=== PATIENT | female | born 1945 | race Caucasian/White ===

== ENCOUNTER → 2018-08-22 12:18 | Outpatient (CLI) | payer MEDICARE, SELFPAY ==
--- NOTE | 2018-08-22 12:37 | MRI_ITS ---
STUDY: MRI BRAIN WITH AND WITHOUT CONTRAST REASON FOR EXAM: Female, 73 years old. Left facial weakness and paresthesias TECHNIQUE: Standardized multiplanar fat and water weighted pulse sequences were obtained. 10 ml of Gadavist contrast material was administered intravenously for the contrast portion of the examination. COMPARISON: None. FINDINGS: Mild atrophy and periventricular white matter ischemic changes without mass effect or restricted diffusion. There is a large arachnoid cyst high in the right frontal region Normal bilateral basal ganglia. Normal thalami. There is no extra-axial fluid accumulation. Normal flow voids within the major intracranial circulation suggesting patency by spin echo criteria. Normal venous enhancement. There appears to be very subtle enhancement of the left geniculate ganglion and proximal descending portion of the left facial nerve which appears to be normal size of uncertain clinical significance but may be consistent with neuritis. Clinical correlation recommended.. Partial empty sella deformity. Normal, infundibular stalk, optic chiasm and hypothalamus. Normal tectal plate and pineal gland. Normal midbrain, miquel and medulla. Normal cerebellum. Normal basal cisterns. Normal bilateral temporal bones. Normal bilateral internal auditory canals. Postsurgical changes of the orbits.. Mild mucosal thickening of the ethmoid air cells. Normal calvarium and skull base. Normal visualized soft tissue structures. Normal visualized upper cervical spine. MRI/Brain W/WO Contrast IMPRESSION: Mild atrophy and periventricular white matter ischemic changes without evidence for acute infarct. Mild enhancement of the left geniculate ganglion and proximal descending portion of the facial nerve of uncertain clinical significance but may be consistent with neuritis. Clinical correlation recommended Electronically Signed: Bruce Fry MD at 15:51 EST , Service support ,
== END ==
PROVIDERS: Family Provider Internal Medicine; PCP Internal Medicine
DX: R20.9 Unspecified disturbances of skin sensation (principal)
CPT/HCPCS: 70553; A9585

== ENCOUNTER 2018-09-25 15:30 | Emergency (ER) | payer MEDICARE, SELFPAY ==
[2018-09-25 15:32] VITALS: BP 162/91; PULSE 96; RESP 16; TEMP 36.9; O2SAT 92; BMI 35.6
--- NOTE | 2018-09-25 15:44 | ED.DCSUM_ITS ---
- ER Visit Summary Date of Service: 09/25/18 Chief Complaint: Patient presents from an urgent care, apparently she has had a 3-day history of cough congestion and some difficulty breathing. She has had intermittent fevers. No current fever. She denies any chest pain. She is able to ambulate well and is able to speak in full sentences. Physical Examination: Not appear in acute distress. Moist mucous membranes, there is upper airway congestion, rhinorrhea, TM erythema bilaterally. No C-spine tenderness supple neck. Regular rate and rhythm without any obvious murmurs Clear lungs bilaterally speaking in full sentences without any obvious respiratory distress. No wheezing heard by me Abdomen soft and nontender no guarding or rebound Moves all extremities without any difficulty or pain. Skin does not show any obvious rashes or lesions, no trauma. Alert oriented ?3 with no gross focal deficit Course and Treatment: Patient has an unremarkable x-ray. I reexamined her her lungs sound clear she is actively coughing, she likely has bronchitis. She a ppears well he does not appear toxic she is afebrile with a normal heart rate and saturating 92-93% after ambulating. I believe she is stable for discharge Disposition: Discharge stable condition Impression: Acute bronchitis This note was generated with [employer] dictation software. It may contain incorrect words, spelling, and punctuation that were not noted in review of the chart prior to signing ED Disposition - Plan for ED Patient: Disposition: Home or Assisted Living Instructions: Acute Bronchitis Prescriptions: Albuterol IH (ProAir) [Proair Hfa] 1 puff INHALATION Q4H PRN PRN #1 inhaler PRN Reason: Sob &/Or Wheezing Azithromycin 250 mg PO DAILY #6 tab Prednisone 60 mg PO DAILY 5 Days #15 tab Referrals: Coral Go MD [Primary Care Provider] - 3-5 Days
--- NOTE | 2018-09-25 15:45 | RAD_ITS ---
STUDY: X-RAY CHEST REASON FOR EXAM: Female, 73 years old. Cough, SOB. TECHNIQUE: PA and lateral chest. COMPARISON: CT chest 05/08/2014. FINDINGS: There is a calcified granuloma in the right lung base. Lung burnett are otherwise clear. There is no demonstrated pleural abnormality. Normal size heart. Normal mediastinum and momo. Normal visualized pulmonary arteries. There is atherosclerotic calcification of the aortic arch. Normal visualized thoracic spine. Normal visualized ribs, clavicles, and shoulders. There is no demonstrated abnormality of the visualized soft tissue structures of the upper abdomen. RAD/Chest PA and Lateral IMPRESSION: No acute process. Old healed granulomatous disease. Electronically Signed: Monica Gallagher MD at 18:23 EST Tel , Service support ,
--- NOTE | 2018-09-25 16:32 | ED.DEP ---
ED Disposition - Plan for ED Patient: Disposition: Home or Assisted Living Instructions: Acute Bronchitis Prescriptions: Albuterol IH (ProAir) [Proair Hfa] 1 puff INHALATION Q4H PRN PRN #1 inhaler PRN Reason: Sob &/Or Wheezing Benzonatate [Tessalon Perle] 100 mg PO Q4H PRN PRN #20 cap PRN Reason: Cough Azithromycin 250 mg PO DAILY #6 tab Prednisone 60 mg PO DAILY 5 Days #15 tab Referrals: Coral Go MD [Primary Care Provider] - 3-5 Days
== END 2018-09-25 16:35 | disposition home or self-care (01) ==
PROVIDERS: Emergency Provider Emergency Medicine; Family Provider Internal Medicine; PCP Internal Medicine
DX: J20.9 Acute bronchitis, unspecified (principal); E11.9 Type 2 diabetes mellitus without complications; I10 Essential (primary) hypertension; E78.00 Pure hypercholesterolemia, unspecified; Z72.0 Tobacco use; Z79.51 Long term (current) use of inhaled steroids; Z79.84 Long term (current) use of oral hypoglycemic drugs; Z79.891 Long term (current) use of opiate analgesic; Z79.899 Other long term (current) drug therapy
CPT/HCPCS: 71046; 99282

== ENCOUNTER 2018-12-14 09:30 | Outpatient (RCR) | payer MEDICARE, SELFPAY ==
--- NOTE | 2018-08-03 14:59 | HP.PTEVAL_ITS ---
Patient's Visit Information KIRSTEN MARKS is a 73 year old F referred to Physical Therapy by CANDIDA SHARIF with a diagnosis of facial parasthesia. Date of Evaluation: 08/03/18 Physical Therapist: Chino Mcclendon PT, - Visit Plan Frequency: 2x /Week Duration: 3 Weeks Plan: Facial expressions for ex's, EMS for muscle and neural stimulation - Subjective Findings: Pt reports she first had a facial drop occur on the L side of her body 15 years ago. Pt reports she was at work at that time when she noticed the side of her face. Pt reports she has had this facial droop since that time. However in mid May of this year, the drooping has become much worse. Pt reports she has noticed her L eye not closing well anmd she is unable to smile at this time. Pt reports her L eye regalado and hurts which results in pain. Pt also notes she has difficulty with swallowing. Pt reports she only has pain in her eye when it dries out - Objective Neuro: Facial sensation is WNL to light touch. ROM: Pt lacks most AROM with L sided facial muscles. Sig limitations with L eye closure and pursing lips. 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 For Medicare and Medicare HMO plans, please review the plan of care and approve it. It will need to be FAXED BACK to us at [phone] for Medicare purposes. For Medicare only, by signing this I certify the plan of care. Please let me know if there are questions or concerns regarding this plan of care. Physician Signature: Date:
--- NOTE | 2018-12-14 09:57 | HP.PTDCSUM ---
HP - PT D/C Summary It has been my pleasure to treat KIRSTEN MARKS under orders from CANDIDA SHARIF, for the diagnosis of facial parasthesia for a total of 18 visit(s). Discharge Date: Please see the following information for a summary of their discharge status. - Subjective Subjective: Pt reports she feels as though she has made great improvements. Ready for discharge today - Objective Objective/Function: Pt can now smile moving both corners of her mouth. Pt is able to blink with her L eye without as much lag. Pt is able to pucker lips better. Pt is able to swallow better now as well,. Pt is I with HEP. Rx goals achieved - Goals Goal 1:: I with HEP Goal Progress: Goal Met Goal 2:: Pt will be able to smile with 25% improvement Goal Progress: Goal Met Goal 3:: Swallowing will improve x 25% to aid with IADL's Goal Progress: Goal Met - Plan Plan: Discharge - D/C Information If there are questions or concerns regarding this patient's physical therapy, please feel free to call me at [phone]. Thank you for the referral of this patient. Sincerely, Chino Mcclendon, PT, ATC
== END 2018-12-14 10:30 | disposition home or self-care (01) ==
LOC: PT 09:30
PROVIDERS: Family Provider Internal Medicine; PCP Internal Medicine
DX: R29.810 Facial weakness (principal); R20.9 Unspecified disturbances of skin sensation
CPT/HCPCS: 97014; 97110; 97162; 97530; G0283

== ENCOUNTER → 2019-03-22 | Outpatient (CLI) | payer MEDICARE, SELFPAY ==
--- NOTE | 2019-03-22 16:35 | CT_ITS ---
STUDY: CT SOFT TISSUE NECK WITH CONTRAST REASON FOR EXAM: Female, 73 years old. Left otalgia. Ear and jaw pain left greater than right. History of thyroid cancer and breast cancer. RADIATION DOSAGE (If Supplied By Facility): CTDIvol = ( 19.89 ) mGy, DLP = ( 601.03 ) mGycm TECHNIQUE: The patient was scanned in a multi-detector CT scanner. High resolution transaxial imaging was performed following intravenous administration of 75ml IV Isovue 300. Sagittal and coronal images were reconstructed. Individualized dose optimization techniques were used for this CT. COMPARISON: None. FINDINGS: Normal bilateral parotid glands. Normal bilateral snowboard designer spaces. Normal bilateral parapharyngeal spaces. Normal bilateral carotid spaces. Normal bilateral sublingual and submandibular glands and spaces. Normal visualized nasopharynx. Normal retropharyngeal space. Normal perivertebral space. Normal visualized bilateral faucial tonsils. The visualized tongue, tongue base and oropharynx are normal. The visualized cervical lymph nodes (levels I-) are within normal size limits, and maintain normal morphology. There is no demonstrated solid or cystic mass lesion. There is no abnormal contrast enhancement. Normal epiglottis, bilateral vallecula and hypopharynx. The pre-epiglottic and paraglottic adipose spaces are normal. Normal visualized right piriform sinus, aryepiglottic folds, vocal cords, and arytenoid-cricoid articulations. Normal subglottic trachea. Left piriform sinus is not visualized. There is no evidence of soft tissue mass. There is no visualized abnormality of the auditory canals or abnormality of the middle or inner ear. Normal bilateral lobes of the thyroid gland. Normal visualized pulmonary apices. Normal visualized paranasal sinuses. There are minimal degenerative changes of the lower cervical spine. Normal-appearing TMJs. CT/Soft Tissue Neck WITH Contrast IMPRESSION: Grossly normal CT of the soft tissues of the neck. Electronically Signed: Junior Francis DO at 17:00 EDT Tel [phone], Service support ,
[2019-03-22 16:45] LABS: CREATININE FINGERSTICK 0.6 mg/dL (0.55-1.02); EGFR FINGERSTICK > 60.0000 mL/min (>60)
== END | disposition home or self-care (01) ==
LOC: CT 16:33
PROVIDERS: Family Provider Internal Medicine; PCP Internal Medicine; Referring Provider Otolaryngology; Visit Provider Otolaryngology
DX: H92.02 Otalgia, left ear (principal)
CPT/HCPCS: 70491; Q9967

== ENCOUNTER 2020-04-09 10:30 | Outpatient (RCR) | payer MEDICARE, SELFPAY ==
--- NOTE | 2020-03-20 10:32 | HP.PTEVAL ---
Patient's Visit Information KIRSTEN MARKS is a 74 year old F referred to Physical Therapy by CANDIDA SHARIF with a diagnosis of [place] Palsey. Date of Evaluation: 03/20/20 Physical Therapist: Chino Mcclendon, PT, ATC - Visit Plan Frequency: 2x /Week Duration: 4 Weeks Plan: IFC stimulation to L side of face - Subjective Pt reports she has had bells palsey with the L side of her face since 2018. Pt notes this mostly settled in the eye. Pt reports she has difficulty with smiling and with closing her L eye. Pt reports she has had other diagnosis given to her for this condition she has, and questions whether [place] Palsey is what she has. Pt notes she is beginning to develop tremors in her hands now as well. Pt reports she has had electric stim in the past which made a big difference and that is why she has been referred back here. Pt notes her goal is to be able to have better control over her facial muscles in the future. - Objective Neuro: B face sensation is WNL to light touch. function: Pt has min-mod difficulty with swallowing at this time. Motion: Pt has no ability to wrinkle L side of nose. Descent control of L eye. no control of L side of mouth. - Goals Goal 1:: I with HEP Goal Time Frame: 2-4 Weeks Goal 2:: Pt will be able to smile with 25% greater ease Goal Time Frame: 2-4 Weeks Goal 3:: Pt will report greater ease with chewing her food at a meal Goal Time Frame: 2-4 Weeks - Rehabilitation Potential Physical Therapy Diagnosis: Pt reports facial paralysis on L side secondary to [place] Palsey Rehabilitation Potential: Good - Anticipated Interventions Patient/Client Instruction: Educate patient on: Condition, Plan of Care For the Purpose of:: To improve self management Therapeutic Exercise to Include: Strength training, Active ROM For the Purpose of:: To increase ROM, To improve muscle performance and motor function IF ES: Yes For the Purpose of:: To improve muscle performance and motor function Thank you for the opportunity to evaluate your patient. For Medicare and Medicare HMO plans, please review the plan of care and approve it. It will need to be FAXED BACK to us at [phone] for Medicare purposes. For Medicare only, by signing this I certify the plan of care. Please let me know if there are questions or concerns regarding this plan of care. Physician Signature: Date:
--- NOTE | 2020-06-05 07:30 | HP.PT.NRP ---
KIRSTEN MARKS was seen in my office for initial evaluation on 03/20/20. The following Plan of Care was established for this patient: Initial Frequency: 2x /Week Initial Duration: 4 Weeks Patient/Client Instruction: Educate patient on: Condition, Plan of Care For the Purpose of:: To improve self management Therapeutic Exercise to Include: Strength training, Active ROM For the Purpose of:: To increase ROM, To improve muscle performance and motor function IF ES: Yes For the Purpose of:: To improve muscle performance and motor function This patient was last seen in our office . Pertinent comments regarding their Physical therapy will appear below: Pt was treated for 9 PT visits for bells palsey through the date of 04/18/20. Pt has not returned through todays date and is discontinued at this time. At this point I will be discontinuing this patient from physical therapy. I would be happy to see this patient again in the future if found appropriate by the physician. Thank you! Chino Mcclendon, PT, ATC
== END 2020-04-09 19:00 | disposition home or self-care (01) ==
LOC: PT 10:30
PROVIDERS: PCP Internal Medicine
DX: G51.0 Bell's palsy (principal)
CPT/HCPCS: 97014; 97161; G0283

== ENCOUNTER → 2020-09-16 08:27 | Outpatient (CLI) | payer MEDICARE, SELFPAY ==
--- NOTE | 2020-09-16 08:30 | RAD_ITS ---
STUDY: AIR CONTRAST UPPER GI SERIES REASON FOR EXAM: Female, 75 years old. PT C/O DRY COUGH CAUSING PAIN X 9 MONTHS, TROUBLE SWALLOWING X YEARS, ACID REFLUX, HIATAL HERNIA, PT HAS HX OF BREAST CANCER AND THYROID CANCER FLUOROSCOPY TIME (if supplied): (1:10) minutes/seconds TECHNIQUE: SINGLE CONTRAST AND AIR CONTRAST FLUOROSCOPIC IMAGES. COMPARISON: None. FINDINGS: The cervical esophagus demonstrates normal motility without aspiration. There is no stricture or extrinsic mass effect. No intraluminal polypoid mass is identified. The thoracic esophagus distends well without stricture or mucosal fold thickening. No mucosal ulcerations are identified. There is no extrinsic mass effect. There are no diverticula. Small hiatal hernia with a small weblike narrowing. The patient ingested a 12 mm tablet of barium without any difficulty. The stomach distends well without mucosal fold thickening or mucosal ulceration. There is no intraluminal mass. The duodenal bulb is freely distensible without deformity or ulceration. The duodenal sweep is normal in position and caliber. RAD/Upper GI w/BA Swallow IMPRESSION: Small slight nasal hernia with a small weblike narrowing without reflux. The patient ingested a 12 mm tablet of barium without any difficulty. Electronically Signed: Dinesh Dennis MD at 15:04 EST , Service support ,
== END ==
PROVIDERS: PCP Internal Medicine
DX: R05 Cough (principal)
CPT/HCPCS: 74246

== ENCOUNTER → 2020-10-16 06:46 | Outpatient (CLI) | payer MEDICARE, SELFPAY ==
[2020-10-16] MEDS: Methacholine Chloride 18 ml neb kit IH (07:14)
--- NOTE | 2020-10-17 13:02 | BRONCHALL ---
Bronchoprovocation Challenge - Bronchoprovocation Challenge Bronchoprovocation Challenge: INTRODUCTION: The patient is a 75-year-old female that presents for a methacholine challenge secondary to a diagnosis of wheezing and cough. Respiratory therapy reported good patient effort and reproducible results. INTERPRETATION: Initial spirometry did not show any large airways obstructive ventilatory defect and preserved airflows throughout. The patient was then given progressively increasing doses of methacholine in a standardized fashion. The patient's FEV1 fell by 28% with a 4 mg dose. The patient's PD 20 FEV1 was noted to be 0.038. IMPRESSION: Positive methacholine challenge in a pattern consistent with mild bronchial hyperresponsiveness.
== END ==
PROVIDERS: PCP Internal Medicine
DX: R05 Cough (principal); R06.2 Wheezing; R06.00 Dyspnea, unspecified
CPT/HCPCS: 94070; 95070

== ENCOUNTER 2022-05-20 11:30 | Outpatient (RCR) | payer MEDICARE, SELFPAY ==
--- NOTE | 2022-03-24 14:07 | HP.PTEVAL_ITS ---
Patient's Visit Information KIRSTEN MARKS is a 76 year old F referred to Physical Therapy by Dr. Esteban Vital MD with a diagnosis of PD and abnormality of gait. Date of Evaluation: 03/24/22 Physical Therapist: CEDRICK Gale - Visit Plan Frequency: 2x /Week Duration: 2 Months Plan: 2X/ week for 8 weeks to increase dynamic/static balance, gait training, dual tasking, stretching, endurance, with HEP and possible sign up for PD class - Subjective Pt was Dx with PD in 2019. Pt reports that she is on meds and just got that increased to see if that helps her symptoms. She is still in early stages with increase tremor on the L side and sometimes words she can think them but can't say them. She has asthma so she runs out of air going to the mailbox. It hurts her back to walk too much plus arthritis in her knees. She has had no falls. She tends to drag her feet but has caught them on things. Stairs: she does not have to go to the basement and when she does she hangs onto the hand rail. She does 2 feet to a stair because the other way grinds on her R knee. She currently does not do any exercise at home. She enjoys theater but nothing active. She struggles with rolling over in bed and has to grab the edge of the bed to pull self over. Sit to stands: she has to use arm rests and lawn chairs are impossible to get out of. She still drives (just got a new car that is easier to get in and out of and the threshold is lower to the ground). She lives with 2 children and a grandchild (all adults that live with her). She gets leg cramps in the legs every night. No freezing episodes. Pt is interested in PD class here at . - Objective Gait: Walks with short stride, decreased heel to toe and no arm swing with fw bent posture. 4 square test 14.08 seconds. TU.39 seconds. Sit to stand: able to sit to stand on fist attempt using B arms. FGA: 7. LE MMT: R knee ext 27.6, L knee ext 21.7, R knee flex 16.3 and L knee flex 16.3, and R hip flex 15.2 and L hip flex 15. Seated opp arm and leg: Pt struggles with opp arm and leg in sitting and it also increases her back pain - Balance/Special Test Scores Functional Gait Assessment Score: 7 % Disability: 76.6700 Lower Extremity Functional Score: 21 - Goals Goal 1:: I HEP (pt prefers to do exercises at home and interested in PD class 1X/week) Goal Time Frame: 6-8 Weeks Goal 2:: Increase FGA by 5 points to decrease fall risk (score was 7 at the time of the eval) Goal Time Frame: 6-8 Weeks Goal 3:: Decrease 4 square time (score at the time of the eval: 14:08) Goal Time Frame: 6-8 Weeks Goal 4:: Decrease TUG time to decrease fall risk (score at the time of the eval: 10:39) Goal Time Frame: 6-8 Weeks - Rehabilitation Potential Rehabilitation Potential: Good - Anticipated Interventions Patient/Client Instruction: Educate patient on: Condition, Plan of Care For the Purpose of:: To improve muscle performance and motor function, To improve ability to perform ADL's, To increase tolerance to activity/co ndition/position, To improve performance and independence with ADL's, To decrease level of supervision to perform tasks, To improve ability of physical actions for home/community/work/leisure, To improve gait and locomotor functions, To increase flexibility/ROM, To improve endurance, To improve balance, To improve safety with gait Therapeutic Exercise to Include: Strength training, Endurance training, Balance training, Coordination, Body mechanics, Postural training, Flexibilty training, Gait and locomotor training, Neuromotor development, Active ROM For the Purpose of:: To improve nutrient delivery to tissue, To increase oxygenation perfusion, To improve muscle performance and motor function, To improve ability to perform ADL's, To increase tolerance to activity/condition/position, To improve performance and independence with ADL's, To decrease level of supervision to perform tasks, To improve ability of physical actions for home/community/work/leisure, To improve gait and locomotor functions, To improve health of tissue, To decrease soft tissue restriction, To increase flexibility/ROM, To improve endurance, To improve balance, To improve safety with gait Functional Training to Include: Gait training For the Purpose of:: To improve gait and locomotor functions, To improve safety with gait Thank you for the opportunity to evaluate your patient. For Medicare and Medicare HMO plans, please review the plan of care and approve it. It will need to be FAXED BACK to us at [phone] for Medicare purposes. For Medicare only, by signing this I certify the plan of care. Please let me know if there are questions or concerns regarding this plan of car e. Physician Signature: Date:
--- NOTE | 2022-04-14 12:38 | HP.PTREVAL ---
Dr. Esteban Vital MD, It has been my pleasure to treat KIRSTEN MARKS over the last 5 visits for PD and abnormality of gait. Please see the progress note below for an update on the physical therapy plan of care! Subjective: Pt feels that she has improved but she feels that she can still improve on her endurance. She is still winded. She reports still struggling with her balance and putting her socks on. She can not stand for 10 min and can't walk too far due to SOB. Objective/Function: 4 square 11.24 seconds. TUG 9.93. FGA: 16. Pt was SOB after walking back to the department and when getting off the Nu-step and also after up and down stairs. Plan Plan: 1X/ week for 4 additional weeks to increase dynamic/static balance, gait training, dual tasking, stretching, endurance, with HEP and possible sign up for PD class Balance/Gait/Functional tests - Balance/Special Test Scores Functional Gait Assessment Score: 16 % Disability: 46.6700 Lower Extremity Functional Score: 31 Goals Goal 1:: I HEP (pt prefers to do exercises at home and interested in PD class 1X/week) Goal Time Frame: 6-8 Weeks Goal 2:: Increase FGA to score of 20 points to decrease fall risk (score was 7 at the time of the eval) Goal Time Frame: 6-8 Weeks Goal 3:: Decrease 4 square time to 10 seconds (score at the time of the eval: 14:08) Goal Time Frame: 6-8 Weeks Goal Progress: Progressing Goal 4:: Decrease TUG time to decrease fall risk to 9 seconds (score at the time of the eval: 10:39) Goal Time Frame: 6-8 Weeks Goal Progress: Progressing Goal 5:: Be able to walk around entire PT/H&W building with min SOB and no rest breaks. Goal Time Frame: 2-4 Weeks Anticipated Interventions Patient/Client Instruction: Educate patient on: Condition, Plan of Care For the Purpose of:: To improve muscle performance and motor function, To improve ability to perform ADL's, To increase tolerance to activity/condition/position, To improve performance and independence with ADL's, To decrease level of supervision to perform tasks, To improve ability of physical actions for home/community/work/leisure, To improve gait and locomotor functions, To increase flexibility/ROM, To improve endurance, To improve balance, To improve safety with gait Therapeutic Exercise to Include: Strength training, Endurance training, Balance training, Coordination, Body mechanics, Postural training, Flexibilty training, Gait and locomotor training, Neuromotor development, Active ROM For the Purpose of:: To improve nutrient delivery to tissue, To increase oxygenation perfusion, To improve muscle performance and motor function, To improve ability to perform ADL's, To increase tolerance to activity/condition/position, To improve performance and independence with ADL's, To decrease level of supervision to perform tasks, To improve ability of physical actions for home/community/work/leisure, To improve gait and locomotor functions, To improve health of tissue, To decrease soft tissue restriction, To increase flexibility/ROM, To improve endurance, To improve balance, To improve safety with gait Functional Training to Include: Gait training For the Purpose of:: To improve gait and locomotor functions, To improve safety with gait Please do not hesitate to contact me at [phone] by phone or if you have questions or concerns regarding this new plan of care! Sincerely, Aneta Leonardo, MPT
--- NOTE | 2022-05-20 12:51 | HP.PTDCSUM ---
It has been my pleasure to treat KIRSTEN MARKS referred by Dr. Esteban Vital MD, with the diagnosis of PD and abnormality of gait for a total of 11 visit(s). Discharge Date: 05/20/22 Please see the following information for a summary of their discharge status. Subjective: She feels her balance has improved. She wants to sit in on her class today at noon. She feels that she is ready to do once a week PS class. body aches Pain Intensity (Out of 10): 4 % Improvement: 75 Objective/Function: TUG 10.01. 4 Square: 10.66. FGA 20. Pt was able to walk around the whole dept with SBA with good stride length and better increase L arm swing when focused on it and very min SOB Goal 1:: I HEP (pt prefers to do exercises at home and interested in PD class 1X/week) Goal Progress: Goal Met Goal 2:: Increase FGA to score of 20 points to decrease fall risk (score was 7 at the time of the eval) Goal 3:: Decrease 4 square time to 10 seconds (score at the time of the eval: 14:08) Goal Progress: 10.66 sec Goal 4:: Decrease TUG time to decrease fall risk to 9 seconds (score at the time of the eval: 10:39) Goal Progress: 10.01 sec Goal 5:: Be able to walk around entire PT/H&W building with min SOB and no rest breaks. Goal Progress: Goal Met Plan: DC PT to PD class if the patient chooses to do so. Discharge Comments: DC PT to PD class. If there are questions or concerns regarding this patient's physical therapy, please feel free to call me at [phone]. Thank you for the referral of this patient. Sincerely, Aneta Leonardo, MPT Balance/Gait/Functional tests - Balance/Special Test Scores Functional Gait Assessment Score: 20 % Disability: 33.3400 Lower Extremity Functional Score: 31
== END 2022-05-20 19:00 | disposition home or self-care (01) ==
LOC: PT 11:30
PROVIDERS: PCP Internal Medicine; Referring Provider Psychiatry & Neurology Sleep Medicine; Visit Provider Psychiatry & Neurology Sleep Medicine
DX: G20 Parkinson's disease (principal); R26.9 Unspecified abnormalities of gait and mobility
CPT/HCPCS: 97110; 97161; 97530

== ENCOUNTER 2022-12-30 12:41 | Emergency (ER) | payer MEDICARE, SELFPAY ==
[2022-12-30] VITALS (9 sets, daily range): BP systolic 142–180; BP diastolic 70–91; PULSE 81–111; RESP 14–21; TEMP 36.3; O2SAT 88–97; BMI 39.2
--- NOTE | 2022-12-30 12:58 | ED.VIS.FALL ---
HPI HPI - Fall History of Present Illness Chief Complaint: Fall Informant: patient and family Narrative Narrative: Presents after a fall with left greater than right shoulder pain. History is from her and her son. Patient states she was home. She got twisted on her shoe causing her to fall forward. She states she broke her fall by putting her arms out. She feels both shoulders got jammed. She did not hit her head or lose consciousness. This was a mechanical fall. This was not syncopal. Of note, she has a loop recorder type event monitor on but this was not a syncopal or presyncopal episode at all. This was a mechanical fall. Only blood thinner is aspirin. She complains primarily of left shoulder pain and slightly of right. Lower extremities do not hurt. Neck and back do not hurt. Head and face do not hurt. [facility] Medical History Asthma Breast cancer Diabetes mellitus LYNETTE (obstructive sleep apnea) Home Medications aspirin 81 mg chewable tablet 81 mg PO DAILY@0800 11/29/13 [History Last Taken Unknown] calcium carbonate 600 mg-vitamin D3 10 mcg (400 unit) tablet (Calcium 600 + D(3)) 1 ea PO DAILY 11/29/13 [History Last Taken Unknown] multivitamin with folic acid 400 mcg tablet (Thera) 1 tab PO DAILY 11/29/13 [History Last Taken Unknown] naproxen 500 mg tablet (Naprosyn) 500 mg PO DAILY 11/29/13 [History Last Taken Unknown] pantoprazole 40 mg tablet,delayed release 40 mg PO DAILY 11/29/13 [History Last Taken 12/06/13 07:45 40 MG] rosuvastatin 10 mg tablet 10 mg PO QHS 11/29/13 [History Last Taken Unknown] hydrocodone-acetaminophen 5-325mg 5mg-325mg 1 tab PO Q4H PRN PRN Pain #20 TABLETS 12/07/13 [Rx Last Taken Unknown] levothyroxine 100 mcg tablet 100 mcg PO DAILY #45 TABLETS 12/07/13 [Rx Last Taken Unknown] albuterol sulfate 90 mcg/actuation aerosol inhaler 1 puff inhalation Q4H PRN PRN Sob &/Or Wheezing ##1 09/25/18 [Rx Last Taken Unknown] azithromycin 250 mg tablet 250 mg PO DAILY #6 tabs 09/25/18 [Rx Last Taken Unknown] benzonatate 100 mg capsule 100 mg PO Q4H PRN PRN Cough #20 caps 09/25/18 [Rx Last Taken Unknown] amlodipine 5 mg tablet 5 mg PO DAILY 12/29/22 [History Last Taken Unknown] ascorbic acid (vitamin C) 500 mg chewable tablet 500 mg PO DAILY 12/29/22 [History Last Taken Unknown] benzonatate 100 mg capsule 100 mg PO TID 12/29/22 [History Last Taken Unknown] carbidopa 25 mg-levodopa 100 mg tablet 1 tab PO TID 12/29/22 [History Last Taken Unknown] cholecalciferol (vitamin D3) 50 mcg (2,000 unit) capsule 50 mcg PO DAILY 12/29/22 [History Last Taken Unknown] fluticasone furoate 100 mcg-vilanterol 25 mcg/dose inhalation powder (Breo Ellipta) 1 inh inhalation DAILY 12/29/22 [History Last Taken Unknown] magnesium 250 mg tablet 250 mg PO DAILY 12/29/22 [History Last Taken Unknown] metformin 500 mg tablet 500 mg PO BID 12/29/22 [History Last Taken Unknown] ropinirole 4 mg tablet 4 mg PO QHS 12/29/22 [History Last Taken Unknown] rosuvastatin 5 mg tablet 5 mg PO DAILY 12/29/22 [History Last Taken Unknown] solifenacin 5 mg tablet 5 mg PO DAILY 12/29/22 [History Last Taken Unknown] valsartan 320 mg tablet 320 mg PO DAILY 12/29/22 [History Last Taken Unknown] hydrocodone-acetaminophen 5-325mg 5mg-325mg 1 tab PO Q6H PRN PRN Pain 3 days #10 TABLETS 12/30/22 [Rx Last Taken Unknown] prednisone 20 mg tablet 40 mg PO DAILY 4 days #8 TABLETS 12/30/22 [Rx Last Taken Unknown] Allergy/AdvReac Type Severity Reaction Status Date / Time meperidine HCl [From Demerol] AdvReac Vomiting Verified 12/30/22 12:45 Family History Mother Colon cancer Father Myocardial infarction Brother Cancer Surgical History H/O thyroidectomy Hx of cholecystectomy Social History Smoking Status: Never smoker ROS ROS ED Constitutional Constitutional ED: Denies chills or fever(s) Eyes Eyes: Denies change in vision ENT ENT ED: Reports other Details: 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 This is chronic and unchanged. ; Denies rhinorrhea Cardiovascular Cardiovascular: Denies chest pain, palpitations or racing heartbeat Respiratory/Chest Respiratory/Chest: Denies cough or dyspnea Gastrointestinal Gastrointestinal: Denies nausea or vomiting Musculoskeletal Musculoskeletal: Reports arthralgias; Denies back pain or neck pain Integumentary Denies Abrasions or rash Neurologic Neurologic: Denies headache(s), paresthesias or weakness Hematologic/Lymphatic Hematologic/Lymphatic: Denies easy bleeding Allergic/Immunologic Allergic/Immunologic ED: Denies urticaria EXAM Physical Exam Narrative Exam Narrative: Patient is awake alert and appropriate. She is good informant. HEENT shows no sign of trauma or tenderness on her head forehead nose face in any area. No sign of epistaxis. Intraoral area is normal. Eyes have normal range of motion no injection. Neck is nontender and no pain with motion Lungs are clear bilaterally. She had an O2 sat in the high 80s on room air. But she has no symptoms of this at all. Heart is regular. Peripheral pulses including both upper extremities are normal. Abdomen is soft completely nontender Back shows no tenderness of the cervical thoracic or lumbar spine. Extremities show no tenderness or pain with range of motion of the lower extremities. She has some mild tenderness around the shoulder on the right but motion is actually pretty good and there is no deformity. Left side shows tenderness in the same area but she appears to have some deformity proximally. There is no tenderness further down the humerus elbow forearm or hand on either side. Clavicle does not seem to be involved. Const Vital Signs: 12/30/22 12:42 12/30/22 14:59 12/30/22 15:01 Temperature 97.3 F L Temperature Source Temporal Pulse Rate 107 H 110 H Pulse Rate [1 (Initial Baseline)] 111 H Pulse Rate [2] 81 Pulse Rate [3] 109 H Respiratory Rate 18 14 Respiratory Rate [1 (Initial Baseline)] 18 Respiratory Rate [2] 17 Respiratory Rate [3] 21 H Blood Pressure 180/81 H 165/79 H Blood Pressure [2] 142/82 H Blood Pressure [3] 179/90 H Blood Pressure Mean 114 Pulse Ox 88 95 Oxygen Delivery Method Room Air Nasal Cannula Oxygen Delivery Method [1 (Initial Baseline)] Nasal Cannula Oxygen Delivery Method [2] Nasal Cannula Oxygen Delivery Method [3] Nasal Cannula Oxygen Flow Rate (L/min) Oxygen Flow Rate (L/min) [1 (Initial Baseline)] 2 Oxygen Flow Rate (L/min) [2] 2 Oxygen Flow Rate (L/min) [3] 2 12/30/22 15:11 12/30/22 14:41 12/30/22 15:21 Temperature Temperature Source Pulse Rate Pulse Rate [1 (Initial Baseline)] Pulse Rate [2] Pulse Rate [3] Respiratory Rate Respiratory Rate [1 (Initial Baseline)] Respiratory Rate [2] Respiratory Rate [3] Blood Pressure 164/86 H Blood Pressure [2] Blood Pressure [3] Blood Pressure Mean 112 Pulse Ox Oxygen Delivery Method Nasal Cannula Nasal Cannula Oxygen Delivery Method [1 (Initial Baseline)] Oxygen Delivery Method [2] Oxygen Delivery Method [3] Oxygen Flow Rate (L/min) 2 2 Oxygen Flow Rate (L/min) [1 (Initial Baseline)] Oxygen Flow Rate (L/min) [2] Oxygen Flow Rate (L/min) [3] MDM MDM MDM Narrative Medical decision making narrative: My independent interpretation of the patient's right and left shoulder x-rays show no fracture but she has obvious dislocation of the left which was suspected a bit clinically. Single view chest x-ray showed no acute process. No sign of CHF or infiltrate. This was done because the patient's initial saturations were low. This patient does have a history of asthma. She has had a mild cold for the last week but has been getting better. She is not dyspneic now. But prior to sedation I wanted these images for better evaluation. Procedure: Procedural sedation left shoulder reduction: I discussed risk benefits and options with the patient. She wanted to have sedation. We discussed that she is slightly higher risk due to age and history of asthma but overall her medical conditions are stable at this time. Her last meal was last night. She has a Mallampati of 2. A timeout was performed. She received a total of 40 mg of propofol IV. She was kept on the monitor the whole time. The lowest saturation was 91%. Shoulder was manipulated using traction some countertraction and modified Milch technique. It is appears that it is likely back in place. We did not get a prominent motion or clunk. But her motion is better and she no longer has subacromial divot. To verify if this is in or not, we will repeat film. Certainly if it is not and we will do further manipulation. We talked with the patient family about options. Patient states that her oxygen saturations will go down in the 80s. That is not uncommon. Normally they are in the low 90s when everything is normal. She admits that she has been wheezing more over the last week but it is starting to get better. But she still using her nebulizer little more than usual. We will start a short course of steroids. We explained that this will likely cause her blood sugars to go up. This may give some benefit with her shoulder discomfort but it is already better after reduction. We will write for a few pain meds. She had problems with Demerol but has never had problems with any other narcotic or pain med. She does live with family. We explained that she also will be a little bit more unsteady with her arm in a sling and the pain medicines can worsen this. They are comfortable managing this. I did review patient's [facility] online prescribing list that shows no controlled substances in the last 2 years. My independent interpretation the patient's repeat 3 image of the left shoulder shows reduction without fracture. Final reading is similar. Patient feels much better. Radiography Diagnostic Testing: Clinical Impression(s) from Imaging Studies Chest X-Ray 12/30/22 13:01 IMPRESSION: No acute abnormality is seen. Left shoulder dislocation. Electronically Signed: Dinesh Dennis MD at 13:53 EDT , Shoulder X-Ray 12/30/22 13:25 IMPRESSION: Anterior inferior dislocation of the left shoulder joint. Electronically Signed: Dinesh Dennis MD at 13:55 EDT , Shoulder X-Ray 12/30/22 13:28 IMPRESSION: Degenerative changes. Electronically Signed: Dinesh Dennis MD at 13:54 EDT , Shoulder X-Ray 12/30/22 15:15 IMPRESSION: Status post reduction of the prior left shoulder dislocation. There is good alignment. Electronically Signed: Dinesh Dennis MD at 15:33 EDT , Procedures Procedural Sedation 1 (Initial Baseline): Consent Signed: Yes Any Problems With Anesthesia: No You/Your family experience fever (hyperthermia) w/anesthesia: No Sedation medication: Propofol Dose: 40 Route: IV Maliampati Score: Class II ASA Classification: E (Patient with fall and acute dislocation. ASA classification would normally be 2.) Comment:: See [facility] for further details. Total sedation time was 7 minutes. Other Procedures Procedure(s): Procedural sedation and left shoulder reduction see [facility] Discharge Plan Triage Chief Complaint: Fall ED Provider: Bryn Chavez Dx/Rx/DC Orders Clinical Impression: Fall from slip, trip, or stumble, Anterior dislocation of left shoulder, Contusion of right shoulder, Asthma exacerbation Instructions: ED Asthma, Acute (Adult), ED Dislocation: Shoulder (Reduced) Prescriptions: New hydrocodone-acetaminophen [hydrocodone-acetaminophen] 5-325 mg tablet 1 tab PO Q6H PRN PRN (Reason: Pain) 3 Days Qty: 10 0RF prednisone 20 mg tablet 40 mg PO DAILY 4 Days Qty: 8 0RF No Action amlodipine 5 mg tablet 5 mg PO DAILY ascorbic acid (vitamin C) 500 mg tablet,chewable 500 mg PO DAILY benzonatate 100 mg capsule 100 mg PO TID carbidopa-levodopa 25-100 mg tablet 1 tab PO TID fluticasone furoate-vilanterol [Breo Ellipta] 100-25 mcg/dose blister with device 1 inh inhalation DAILY magnesium 250 mg tablet 250 mg PO DAILY metformin 500 mg tablet 500 mg PO BID ropinirole 4 mg tablet 4 mg PO QHS Rx Instructions: administer 1-3 hours before bedtime rosuvastatin 5 mg tablet 5 mg PO DAILY solifenacin 5 mg tablet 5 mg PO DAILY valsartan 320 mg tablet 320 mg PO DAILY cholecalciferol (vitamin D3) 50 mcg (2,000 unit) capsule 50 mcg PO DAILY pantoprazole 40 MG tablet 40 mg PO DAILY Label Comments: STOMACH ACID CREW PERSON. aspirin 81 MG tablet,chewable 81 mg PO DAILY@0800 Label Comments: BLOOD THINNER naproxen [Naprosyn] 500 MG tablet 500 mg PO DAILY Label Comments: PAIN rosuvastatin 10 MG tablet 10 mg PO QHS Label Comments: CHOLESTEROL calcium carbonate-vitamin D3 [Calcium 600 + D(3)] 1 EACH tablet 1 ea PO DAILY Label Comments: MINERAL SUPPLEMENT. multivitamin with folic acid [Thera] 1 TABLET tablet 1 tab PO DAILY Label Comments: MINERAL SUPPLEMENT levothyroxine 100 MCG tablet 100 mcg PO DAILY Qty: 45 0RF Label Comments: THYROID SUPPLEMENT Rx Instructions: Should be taken daily first thing in the morning a full glass of water. Should be taken separately from food or other medications hydrocodone-acetaminophen 1 TABLET tablet 1 tab PO Q4H PRN PRN (Reason: Pain) Qty: 20 0RF Label Comments: PAIN MED. azithromycin 250 MG tablet 250 mg PO DAILY Qty: 6 0RF Rx Instructions: 2 tabs 1st day 1 tab daily after albuterol sulfate 1 PUFF inhaler 1 puff Inhalation Q4H PRN PRN (Reason: Sob &/Or Wheezing) Qty: 1 0RF benzonatate 100 MG capsule 100 mg PO Q4H PRN PRN (Reason: Cough) Qty: 20 0RF Primary Care Provider: Coral Go Referrals: Coral Go MD [Primary Care Provider] - 3-5 Days if not improving Kyle Peace DO [Med Staff - Active Staff] - 1 Week Disposition Disposition: Home, Self Care
--- NOTE | 2022-12-30 13:01 | RAD_ITS ---
STUDY: X-RAY CHEST REASON FOR EXAM: Female, 77 years old. Trauma TECHNIQUE: Single AP portable view of the chest. COMPARISON: Comparison is made with prior study of September 25, 2018. FINDINGS: Stable mild increased markings in the right upper lobe suggestive scarring. There is no demonstrated pleural abnormality. Normal size heart. Normal mediastinum and momo. Normal visualized pulmonary arteries. There is atherosclerotic calcification of the aortic arch with tortuosity. Normal visualized thoracic spine. Inferior dislocation of the left shoulder joint. There is no demonstrated abnormality of the visualized soft tissue structures of the upper abdomen. RAD/Chest 1 View (Portable) IMPRESSION: No acute abnormality is seen. Left shoulder dislocation. Electronically Signed: Dinesh Dennis MD at 13:53 EDT ,
[2022-12-30] MEDS: Morphine 4 MG/ML Syringe IV (13:19)
[2022-12-30] MEDS: Ondansetron 4 MG/2 ML Vial IV (13:19)
--- NOTE | 2022-12-30 13:25 | RAD_ITS ---
STUDY: X-RAY - LEFT SHOULDER REASON FOR EXAM: Female, 77 years old. Trauma TECHNIQUE: 2 view(s) of the shoulder. COMPARISON: None. FINDINGS: Anterior inferior dislocation of the left shoulder joint. Normal acromioclavicular joint. Normal acromion. Normal humeral head and visualized proximal humerus. The soft tissue structures are unremarkable. Normal visualized pulmonary apex. RAD/Shoulder min 2 Views IMPRESSION: Anterior inferior dislocation of the left shoulder joint. Electronically Signed: Dinesh Dennis MD at 13:55 EDT ,
--- NOTE | 2022-12-30 13:28 | RAD_ITS ---
STUDY: X-RAY - RIGHT SHOULDER REASON FOR EXAM: Female, 77 years old. Trauma TECHNIQUE: 2 view(s) of the shoulder. COMPARISON: None. FINDINGS: There is mild degenerative arthrosis of the glenohumeral articulation. There is degenerative arthrosis of the acromioclavicular joint without inferior osseous spur formation. Normal acromion. Normal humeral head and visualized proximal humerus. The soft tissue structures are unremarkable. Normal visualized pulmonary apex. RAD/Shoulder min 2 Views IMPRESSION: Degenerative changes. Electronically Signed: Dinesh Dennis MD at 13:54 EDT ,
--- NOTE | 2022-12-30 15:15 | RAD_ITS ---
STUDY: X-RAY - LEFT SHOULDER REASON FOR EXAM: Female, 77 years old. Post reduction images. TECHNIQUE: 3 view(s) of the shoulder. COMPARISON: Comparison is made with prior study done earlier today. FINDINGS: The patient is status post reduction of the left shoulder dislocation. There is good alignment. There is degenerative arthrosis of the acromioclavicular joint without inferior osseous spur formation. Normal acromion. Normal humeral head and visualized proximal humerus. The soft tissue structures are unremarkable. Normal visualized pulmonary apex. RAD/Shoulder min 2 Views IMPRESSION: Status post reduction of the prior left shoulder dislocation. There is good alignment. Electronically Signed: Dinesh Dennis MD at 15:33 EDT ,
[2022-12-30] MEDS: Propofol 200 MG/20 ML Vial IV BOLUS (15:21)
[2022-12-30] MEDS: Ipratropium/Albuterol Sulfate 3 ML AMPUL.NEB INHALATION (16:12)
[2022-12-30] MEDS: predniSONE 20 MG Tablet 40 MG PO (16:46)
== END 2022-12-30 17:03 | disposition home or self-care (01) ==
PROVIDERS: Emergency Provider Emergency Medicine; PCP Internal Medicine; Visit Provider Emergency Medicine
DX: S43.015A Anterior dislocation of left humerus, initial encounter (principal); S40.011A Contusion of right shoulder, initial encounter; J45.901 Unspecified asthma with (acute) exacerbation; G47.33 Obstructive sleep apnea (adult) (pediatric); W19.XXXA Unspecified fall, initial encounter
CPT/HCPCS: 71045; 73030; 94640; 96374; 96375; 99284; J7030; A4216; J2405

== ENCOUNTER 2023-03-18 06:22 | Day surgery (SDC) | payer MEDICARE, SELFPAY ==
[2023-03-18] MEDS: Lactated Ringers 1,000 ML 15 ML IV (06:50)
[2023-03-18 06:51] VITALS: BP 148/65; PULSE 54; RESP 16; TEMP 36.6; O2SAT 92; BMI 35.5
--- NOTE | 2023-03-18 07:30 | COLBX_PTH ---
PATIENT: KIRSTEN MARKS LOC: EN U#:[id number] AGE/SX: 77/F ROOM: RE03/18/[address]: Dr. Kyle Orantes MD : 1945 BED: DIS: 03/18/2023 SPEC #: [id number] RECD: 03/18/23 09:44 STATUS: EDILIA BOLDEN #: [id number] TRENT: 03/18/23 07:[address]: Kyle Orantes DEPT: SURGICAL PATHOLOGY RECD BY: Ekta Jackson ENTERED: 03/18/23 11:16 SP TYPE: COLON BX OTHR DR: Dr. Coral Go MD Tissues: Rectum, NOS Procedures: Surgery Specimen Level IV HEADER OPERATION: Colonoscopy with biopsy (MAC) PRE-OP DIAGNOSIS: History of colonic polyps, family history colon cancer TISSUE SUBMITTED: Rectal mucosa biopsy MICROSCOPIC DIAGNOSIS Rectal mucosa, biopsy: Fragments of hyperplastic polyp. SJ:mathieu 03/19/2023 MICROSCOPIC DESCRIPTION Slides are reviewed. GROSS DESCRIPTION Received in fixative is one container labeled with the patient's name and designated rectal mucosa biopsy. The specimen consists of multiple irregular fragments of light ritter soft tissue that in aggregate measure 1.0 x 0.3 x 0.1 cm. The specimen is totally submitted in one cassette. / SJ:rg 03/18/2023 TC:1 CPT: 60239
--- NOTE | 2023-03-18 07:30 | PCM.HP.BLA ---
History and Physical Date of Admission: 03/18/23 MR#: [id number] Acct: [id number] Name: KIRSTEN MARKS Rep #: [id number] : 1945 Provider: Dr. Kyle Orantes MD Age/Sex: 77/F Location: [facility] Status: Signed Intake Vital Signs 03/17/2215:55 12/29/2308:23 Height 5 ft 3.5 in 5 ft 3 in Weight: 217 lb 8 oz BMI 38.5 BP 121/74 H Blood Pressure Location Lt radial Position Sitting Respiration 18 Pulse 85 Pulse Source Monitor Temp 97.5 F L Temp Source Temporal Pulse Oximetry (%) 91 Oxygen Delivery Method room air Intake Visit Reasons: COLONOSCOPY Chief Complaint: Conlonoscopy consult Injection Wax Molder Required: No Is patient in pain?: No Allergies meperidine HCl [From Demerol] Adverse Reaction (Verified 12/29/22 09:24) Vomiting Medications aspirin 81 mg chewable tablet 81 mg PO DAILY@0800 11/29/13 [History Confirmed 12/29/22] calcium carbonate 600 mg-vitamin D3 10 mcg (400 unit) tablet (Calcium 600 + D(3)) 1 ea PO DAILY 11/29/13 [History Confirmed 12/29/22] multivitamin with folic acid 400 mcg tablet (Thera) 1 tab PO DAILY 11/29/13 [History Confirmed 12/29/22] naproxen 500 mg tablet (Naprosyn) 500 mg PO DAILY 11/29/13 [History Confirmed 12/29/22] pantoprazole 40 mg tablet,delayed release 40 mg PO DAILY 11/29/13 [History Confirmed 12/29/22] rosuvastatin 10 mg tablet 10 mg PO QHS 11/29/13 [History Confirmed 12/29/22] hydrocodone-acetaminophen 5-325mg 5mg-325mg 1 tab PO Q4H PRN PRN Pain #20 TABLETS 12/07/13 [Rx Confirmed 09/25/18] levothyroxine 100 mcg tablet 100 mcg PO DAILY #45 TABLETS 12/07/13 [Rx Confirmed 12/29/22] albuterol sulfate 90 mcg/actuation aerosol inhaler 1 puff inhalation Q4H PRN PRN Sob &/Or Wheezing ##1 09/25/18 [Rx Confirmed 12/29/22] azithromycin 250 mg tablet 250 mg PO DAILY #6 tabs 09/25/18 [Rx] benzonatate 100 mg capsule 100 mg PO Q4H PRN PRN Cough #20 caps 09/25/18 [Rx Confirmed 12/29/22] amlodipine 5 mg tablet 5 mg PO DAILY 12/29/22 [History Confirmed 12/29/22] ascorbic acid (vitamin C) 500 mg chewable tablet 500 mg PO DAILY 12/29/22 [History Confirmed 12/29/22] benzonatate 100 mg capsule 100 mg PO TID 12/29/22 [History Confirmed 12/29/22] carbidopa 25 mg-levodopa 100 mg tablet 1 tab PO TID 12/29/22 [History Confirmed 12/29/22] cholecalciferol (vitamin D3) 50 mcg (2,000 unit) capsule 50 mcg PO DAILY 12/29/22 [History Confirmed 12/29/22] fluticasone furoate 100 mcg-vilanterol 25 mcg/dose inhalation powder (Breo Ellipta) 1 inh inhalation DAILY 12/29/22 [History Confirmed 12/29/22] magnesium 250 mg tablet 250 mg PO DAILY 12/29/22 [History Confirmed 12/29/22] metformin 500 mg tablet 500 mg PO BID 12/29/22 [History Confirmed 12/29/22] ropinirole 4 mg tablet 4 mg PO QHS 12/29/22 [History Confirmed 12/29/22] rosuvastatin 5 mg tablet 5 mg PO DAILY 12/29/22 [History Confirmed 12/29/22] solifenacin 5 mg tablet 5 mg PO DAILY 12/29/22 [History Confirmed 12/29/22] valsartan 320 mg tablet 320 mg PO DAILY 12/29/22 [History Confirmed 12/29/22] PFSH Medical History (Updated 12/29/22 @ 16:[address] Kyle Orantes MD) Asthma Breast cancer Diabetes mellitus LYNETTE (obstructive sleep apnea) Surgical History (Updated 12/29/22 @ 09:21 by Abbi Saez) H/O thyroidectomy Hx of cholecystectomy Family History (Updated 12/29/22 @ 09:22 by Abbi Saez) Mother Colon cancerFather Myocardial infarctionBrother Cancer Social History Smoking Status: Never smoker HPI HPI HPI: Patient is a 77-year-old female who presents for need to schedule surveillance colonoscopy secondary to history of colon polyps as well as family history. They are referred for surgical consultation from Ms. Sheree Gimenez NP. Patient has had prior colonoscopy. Ms. Marks estimates the scope was approximately 5 years ago at the [facility] in [place]. She states it was unremarkable in its findings, but believes that 5 years prior to that she had her first colonoscopy where polyps were identified and she was recommended a 3-year surveillance interval on the account of both this finding as well as her family history. She also reports a probable history of diverticulosis. They have approximately 1 per day without significant straining. They have not noticed recent bleeding or dark stools. They do not regularly take fiber supplements. They do consume significant fiber in their regular diet. Patient, as above, has a family history of colon cancer and reports that her mother was diagnosed at age 75 before ultimately succumbing to this diagnosis at the age of 76. The patient is not prescribed anticoagulants/blood thinners. Relevant prior abdominal surgical history includes: Cholecystectomy Patient does have a significant history of GERD for which she takes Protonix with good effect. She states taking this medication regularly she only has symptoms approximately 1 time per week and these are well managed with antacids. She also believes she has a diagnosis of a hiatal hernia but initially denies any imaging was done to prove this diagnosis and yet later confirms that she did have an EGD performed in the past. Patient denies any frequency to nighttime awakenings and states that she takes her supper at 5 or 6 in the evening and retires to bed by 10 PM. She has not identified any particular food triggers for symptoms. She is currently sleeping with her head propped up on the account of a current cold, but denies this as a general rule. Lastly she does confess to a history of frequent pneumonias. ROS General General: Yes fatigue and breast cancer; No weight change, appetite, colon cancer or weakness HEENT HEENT: Yes difficulty swallowing, eye injury and eye surgery; No swollen glands or hoarseness Endo Endocrine: Yes diabetes mellitus and thyroid cancer; No thyroid disease, Hair loss, heat intolerance or cold intolerance Skin Skin: No rash or changing moles Breast Breast: No left breast lump, right breast lump, nipple discharge, breast pain, abnormal mammogram, abnormal US or breast enlargement Musc Musculoskeletal: Yes back problems and arthritis; No rheumatoid arthritis, gout or joint pain Cardio Cardiovascular: Yes high blood pressure; No murmur, pacemaker, heart disease, atrial fibrillation, heart attack, heart stent, palpitations, shortness of breat with exertion or chest pain Psych Psychiatric: No depression, anxiety or hearing voices Resp Respiratory: Yes shortness of breath, Yes sleep apnea, Yes cough, Yes COPD, Yes asthma, No emphysema and No wheezing Gastro Gastrointestinal: No abdominal pain, No nausea or vomiting, No diarrhea, No constipation, No blood in stool, Yes acid reflux, No hemorrhoids, No ulcers, No gallbladder problem and No black,tarry stools Stu Hematologic: Yes blood thinners, No blood disorders, No bleeding, No anemia and No blood clots Neuro Neurologic: No system reviewed and no additional complaints, except as documented, No as per HPI, No abnormal gait, No abnormal hearing, No abnormal movements, No abnormal speech, No behavioral changes, No burning sensations, No confusion, No convulsions, No disequilibrium, No dizziness, No localized weakness, No frequent falls, No headache(s), No lack of coordination, No loss of vision, No memory loss, No numbness, No other visual disturbances, No radicular pain, No restless legs, No sensory deficit, No syncope, No tingling, No tremor(s), No weakness and No other Exam Const General: cooperative Resp Effort & Inspection: normal respiratory effort Cardio Other: Patient with a Zio patch in place GI Other: Well-healed scars. Nondistended, soft, mildly tender over the epigastrium otherwise nontender to palpation Assessment and Plan Assessment and Plan (1) Personal history of colonic polyps: Status: Chronic Comment: This is a 77-year-old female who presents for consultation regarding surveillance colonoscopy on the account of personal history of colon polyps. Patient estimates that she has had 2 prior colonoscopies in her lifetime and it was the first 1 that identified colon polyps. She reports at that time that she was recommended a 3-year surveillance interval, but went 5 years to her second scope and reports that it has now been 5 years since this scope. She denies any concerning GI habits. She questions whether she should undergo this procedure since she is over the age of 75. While patient's family history does not suggest strong longevity, she does appear to be relatively healthy despite 2 prior cancer diagnoses and what appears to be managed Parkinson's disease. It also is apparent that she should have undergone colonoscopy at 75, but deferred this to a later date on the account of COVID. Therefore, I find it reasonable to perform 1 more investigative procedure. Details of the scope were discussed including need for courtesy car driver and prep Plan: Plan will be to complete colonoscopy on first mutually agreeable date under local MAC. Pre-procedure prep discussed and paper instructions provided. Patient is also made aware that she will need to have a courtesy car driver with her the day of the procedure. (2) Family history of colon cancer in mother: Status: Chronic Comment: This 77-year-old female with a mother diagnosed with colon cancer at the age of 75 who ultimately succumbed to this diagnosis a year later. Given this and patient's personal history of colon polyps I do find it reasonable to pursue the colonoscopy as requested (3) GERD (gastroesophageal reflux disease): Status: Chronic Comment: Patient reports a longstanding history of GERD that is well managed with PPI. She also reports a history of a EGD, but denies any concerning findings with this exam. Given that her symptoms now appear well controlled, I do not find cause to pursue concurrent EGD with colonoscopy I have examined the patient and the H&P has been reviewed. There are no clinical changes since date of exam. Patient confirms she completed her prep in anticipation of today's procedure. We were able to get her prior records from 2017 which showed presence of hyperplastic polyps from the sigmoid. We will proceed to the endoscopy suite for colonoscopy as scheduled. Patient notified that any biopsies obtained today will be reported next week.
[2023-03-18 08:20] VITALS: BP 148/65; BP 95/49; PULSE 88; RESP 16; TEMP 36.7; O2SAT 93
[2023-03-18 08:20] LABS: Bedside Glucose 132 mg/dL (74-106)
[2023-03-18 08:25] VITALS: BP 126/55; BP 148/65; PULSE 88; RESP 18; O2SAT 93
--- NOTE | 2023-03-18 08:27 | OP.COLON_ITS ---
Patient Name: Brissa Cabral Procedure Date: 03/18/2023 7:17 AM Date of : 1945 Age: 77 Procedure: Colonoscopy Indications: High risk colon cancer surveillance: Personal history of colonic polyps Providers: Kyle Orantes MD Referring MD: Kyle Orantes MD Medicines: See the Anesthesia note for documentation of the administered medications Patient Profile: Refer to note in patient chart for documentation of history and physical. Last Colonoscopy: 6 years ago. Complications: No immediate complications. Estimated blood loss: Minimal. Procedure: Pre-Anesthesia Assessment: - The heart rate, respiratory rate, oxygen saturations, blood pressure, adequacy of pulmonary ventilation, and response to care were monitored throughout the procedure. After I obtained informed consent, the scope was passed under direct vision. Throughout the procedure, the patient's blood pressure, pulse, and oxygen saturations were monitored continuously. The Colonoscope was introduced through the anus and advanced to the cecum, identified by the appendiceal orifice, ileocecal valve and palpation. The colonoscopy was somewhat difficult due to a tortuous colon. Successful completion of the procedure was aided by applying abdominal pressure. The patient tolerated the procedure well. The quality of the bowel preparation was adequate to identify polyps 6 mm and larger in size. Scope In: 7:40:36 AM Scope Withdrawal Time 0 hours 19 minutes 21 seconds Scope Out: 8:15:17 AM Total Procedure Duration Time 0 hours 34 minutes 41 seconds Findings: The digital rectal exam was normal. Pertinent negatives include normal sphincter tone. Multiple medium-sized diffuse angioectasias without bleeding were found in the descending colon, in the transverse colon and in the ascending colon. No biopsies or other specimens were collected for this exam. The colon (entire examined portion) was moderately tortuous. No biopsies or other specimens were collected for this exam. A few small and large-mouthed diverticula were found in the sigmoid colon. No biopsies or other specimens were collected for this exam. A 5 mm polypoid lesion was found in the rectum. The lesion was sessile. No bleeding was present. Biopsies were taken with a cold forceps for histology. Estimated blood loss was minimal. Internal hemorrhoids were found during retroflexion. The hemorrhoids were Grade I (internal hemorrhoids that do not prolapse). No biopsies or other specimens were collected for this exam. Impression: - Multiple non-bleeding colonic angioectasias. No specimens collected. - Tortuous colon. No specimens collected. - Diverticulosis in the sigmoid colon. No specimens collected. - Likely benign polypoid lesion in the rectum. Biopsied. - Internal hemorrhoids. No specimens collected. Recommendation: - Discharge patient to home (via wheelchair). - Resume previous diet today. - Continue present medications. - Await pathology results. - Telephone my office for pathology results in 1 week. - Repeat colonoscopy is not recommended due to current age (66 years or older). Procedure Code(s): --- Professional --- 72248, Colonoscopy, flexible; with biopsy, single or multiple Diagnosis Code(s): --- Professional --- Z86.010, Personal history of colonic polyps K55.20, Angiodysplasia of colon without hemorrhage K64.0, First degree hemorrhoids D49.0, Neoplasm of unspecified behavior of digestive system K57.30, Diverticulosis of large intestine without perforation or abscess without bleeding Q43.8, Other specified congenital malformations of intestine CPT copyright 2017 [employer]. All rights reserved. The codes documented in this report are preliminary and upon assistant county engineer review may be revised to meet current compliance requirements. Kyle Orantes MD 03/18/2023 8:26:54 AM This report has been signed electronically. Number of Addenda: 0 Note Initiated On: 03/18/2023 7:17 AM
--- NOTE | 2023-03-18 08:28 | OP.CCLET_ITS ---
03/18/2023 Coral Go [address] [id number] Re : Colonoscopy procedure for Brissa Cabral Dear Dr. Go This procedure was performed on February. My impressions and recommendations are as follows: Impressions : - Multiple non-bleeding colonic angioectasias. No specimens collected. - Tortuous colon. No specimens collected. - Diverticulosis in the sigmoid colon. No specimens collected. - Likely benign polypoid lesion in the rectum. Biopsied. - Internal hemorrhoids. No specimens collected. Recommendations : - Discharge patient to home (via wheelchair). - Resume previous diet today. - Continue present medications. - Await pathology results. - Telephone my office for pathology results in 1 week. - Repeat colonoscopy is not recommended due to current age (66 years or older). My findings are described in the full procedure note, which is enclosed. If I can be of further assistance, please feel free to contact me at Doctor phone number(s): , Work: . Sincerely, Kyle Orantes MD 03/18/2023 8:26:54 AM This report has been signed electronically.
[2023-03-18 08:30] VITALS: BP 108/52; BP 148/65; PULSE 85; RESP 16; O2SAT 93
[2023-03-18 08:35] VITALS: BP 111/45; BP 148/65; PULSE 86; RESP 18; TEMP 36.8; O2SAT 96
[2023-03-18 09:00] VITALS: BP 148/65
== END 2023-03-18 09:04 | disposition home or self-care (01) ==
LOC: EN 06:23 → AC 06:24
PROVIDERS: PCP Internal Medicine; Referring Provider Surgery; Visit Provider Surgery
PROC: 0DJD8ZZ Inspection of Lower Intestinal Tract, Via Natural or Artificial Opening Endoscopic (ICD-10-PCS; CPT 45378; principal; 2023-03-18 07:25)
DX: Z12.11 Encounter for screening for malignant neoplasm of colon (principal); E11.9 Type 2 diabetes mellitus without complications; K55.20 Angiodysplasia of colon without hemorrhage; K64.0 First degree hemorrhoids; K21.9 Gastro-esophageal reflux disease without esophagitis; K57.30 Diverticulosis of large intestine without perforation or abscess without bleeding; K63.5 Polyp of colon; G47.33 Obstructive sleep apnea (adult) (pediatric); J45.909 Unspecified asthma, uncomplicated; E78.00 Pure hypercholesterolemia, unspecified; E03.9 Hypothyroidism, unspecified; Z79.899 Other long term (current) drug therapy; Z79.82 Long term (current) use of aspirin; Z79.84 Long term (current) use of oral hypoglycemic drugs; Z86.010 Personal history of colon polyps; Z80.0 Family history of malignant neoplasm of digestive organs
CPT/HCPCS: 45380; 82962; 88305; J7120; J2405

== ENCOUNTER 2023-11-17 13:30 | Outpatient (RCR) | payer MEDICARE, SELFPAY ==
--- NOTE | 2023-10-20 15:18 | HP.PTEVAL ---
Patient's Visit Information Visit Information Visit Information: KIRSTEN MARKS is a 78 year old F referred to Physical Therapy by Dr. Esteban Vital MD with a diagnosis of Abnormality of gait. Date of Evaluation: 10/20/23 Physical Therapist: CEDRICK Gale Visit Plan Frequency: 2x /Week Duration: 4 Weeks Plan: 2X/ week for 4 weeks for gait training, turning 180 degrees, changing directions, curb steps, stepping over objects with HEP Subjective Subjective: Pt was dx with PD in 2019. She is taking our PD class every Wed at noon. Pt reports that her balance is a major issue. She has a lot of arthritis in her knees and if she has to use them she has pain. She has a back issue and is getting a shot next week. She tore muscles in her L shoulder and has had PT and 2 cortisone shots. She also has asthma. She is SOB if she exercises too much. Getting in and out of the car is hard. She has to hand onto bedside table to get out of bed. She struggles to get out of a chair....even with getting to the edge of the chair. She struggle with turning and LOB with changing like working in the kitchen etc. Steps she has one floor. She goes 2 feet to a stair hanging onto the banister. She struggles with saying the words in her head...it is worse when she is stressed or tired. Pt struggles with some dual tasking like walking and talking or marching and punching. Objective Objective: Gait: Pt walks with B foot slap and dcreased heel to toe. Flexed trunk Pt did have some slight dizziness with horizontal head turns LE MMT R hip flex 14.7 and L 11.7 R knee ext 25.2 and L 25.5 R knee flex 11.7 and L 9.7 Standing heel and toe raises: Pt is able to heel and toe raise with use of her UE for support. FGA: 15 Sit to stand: Pt is able to get out of the chair without using her arms Stairs: up and down recip with 2 hand rails very slow [place] arm and leg movements in standing: X 20 Pt struggled with balance with changing directions Balance/Special Test Scores Functional Gait Assessment Score: 15 % Disability: 50.0000 Lower Extremity Functional Score: 24 Goals Goal 1:: I HEP Goal Time Frame: 4-6 Weeks Goal 2:: Be able to stop and change direction on command without LOB Goal Time Frame: 4-6 Weeks Goal 3:: Be able to heel and toe raise without UE assistance to ornamental ironworker helper in recovery of LOB Goal Time Frame: 4-6 Weeks Goal 4:: Be able to walk and do horizontal head turns without getting dizzy or have LOB Goal Time Frame: 4-6 Weeks Rehabilitation Potential Rehabilitation Potential: Good Anticipated Interventions Patient/Client Instruction: Educate patient on: Condition and Plan of Care For the Purpose of:: To decrease pain, To increase ROM, To improve nutrient delivery to tissue, To improve muscle performance and motor function, To improve ability to perform ADL's, To improve performance and independence with ADL's, To improve ability of physical actions for home/community/work/leisure, To improve gait and locomotor functions, To improve balance, To improve safety with gait and To assume or resume ADL's Therapeutic Exercise to Include: Strength training, Balance training, Coordination, Body mechanics, Postural training, Flexibilty training, Gait and locomotor training and Neuromotor development For the Purpose of:: To improve nutrient delivery to tissue, To improve muscle performance and motor function, To increase tolerance to activity/condition/position, To improve gait and locomotor functions, To increase flexibility/ROM, To improve endurance, To improve balance and To improve safety with gait Functional Training to Include: Gait training For the Purpose of:: To improve gait and locomotor functions and To improve safety with gait Text: Thank you for the opportunity to evaluate your patient. For Medicare and Medicare HMO plans, please review the plan of care and approve it. It will need to be FAXED BACK to us at [phone] for Medicare purposes. For Medicare only, by signing this I certify the plan of care. Please let me know if there are questions or concerns regarding this plan of care. Physician Signature: Date:
--- NOTE | 2023-11-17 13:56 | HP.PTDCSUM ---
Discharge Summary D/C summary: It has been my pleasure to treat KIRSTEN MARKS referred by Dr. Esteban Vital MD, with the diagnosis of Abnormality of gait for a total of 8 visit(s). Discharge Date: 11/17/23 Please see the following information for a summary of their discharge status. Subjective Subjective: Pt feels her balance has improved as well as walking sideways and looking Right and left. Pt feels that PT has really helped her. Pain Knne pain: Pain Intensity (Out of 10): 6 Overall Improvement % Improvement: 75 Objective Objective/Function: Gait: Pt now walks with arm swing and most of the time she is able to keep up opp arm swing with leg Pt is able to X 10 heel and toe raise without UE support (CGA for safety and pt will do this at home still holding onto her countertop) Discussed making sure she turns with picking up her feet Pt was able to to walk and change direction on command and also walk SW with looking in the direction she was going Goals Goal 1:: I HEP Goal Progress: Goal Met Goal 2:: Be able to stop and change direction on command without LOB Goal Progress: Goal Met Goal 3:: Be able to heel and toe raise without UE assistance to hand etcher helper in recovery of LOB Goal Progress: Goal Met Goal 4:: Be able to walk and do horizontal head turns without getting dizzy or have LOB Goal Progress: Goal Met Plan Plan: Add step over hurdles and call out step R or L (going SW) Add more brain work with 4 square D/C Information Discharge Comments: DC PT d/c sentence: If there are questions or concerns regarding this patient's physical therapy, please feel free to call me at [phone]. Thank you for the referral of this patient. Sincerely, Aneta Leonardo, MPT Balance/Gait/Functional tests Balance/Special Test Scores Functional Gait Assessment Score: 15 % Disability: 50.0000 Lower Extremity Functional Score: 46 Improvement % Improvement: 75
== END 2023-11-17 19:00 | disposition home or self-care (01) ==
LOC: PT 13:30
PROVIDERS: PCP Internal Medicine; Referring Provider Psychiatry & Neurology Sleep Medicine; Visit Provider Psychiatry & Neurology Sleep Medicine
DX: G20.A1 Parkinson's disease without dyskinesia, without mention of fluctuations (principal); R26.9 Unspecified abnormalities of gait and mobility
CPT/HCPCS: 97110; 97161; 97530

== ENCOUNTER 2024-04-07 10:00 | Outpatient (RCR) | payer MEDICARE, SELFPAY ==
--- NOTE | 2024-03-09 10:03 | HP.PTEVAL_ITS ---
Patient's Visit Information Visit Information Visit Information: KIRSTEN MARKS is a 78 year old F referred to Physical Therapy by Dr. Esteban Vital MD with a diagnosis of PD/Chronic back pain, abnormality of gait. Date of Evaluation: 03/09/24 Physical Therapist: CEDRICK Gale Visit Plan Frequency: 2x /Week Duration: 3 Months Plan: 2X/week for up to 12 weeks for Hip flexor stretches and LB stretches, neutral spine core stability and postural exercises, gait with upright posture with HEP HEP: LTR, Bridges, PT, B supine QS Subjective Subjective: Pt has back pain and Dr wanted her to do some exercises because she does not want to do the stimulator yet. She has pain across her back and not down her legs.. She has oral meds and topical meds but not really giving her relief. She can not stand very long. She is horrible in AM when she goes and stands up and the pain is so bad as she is walking to the bathroom. She is not in a lot of pain right now but the pain gets more intense as the day goes on. She has PD. She is doing more PD related exercises at home. She can sit for as long as she wants. She can walk longer in the grocery store if she has a cart. She can walk in her [employer] and walk to mailbox etc. It bothers her up and down steps. She struggles with rolling over in bed and she thinks that the flannel sheets are an issue. Pain Back pain: Pain Intensity (Out of 10): 3 Pain Intensity Range: 5 Comment: with walking in this morning Objective Objective: Gait: Walks with shorter strides, heel to toe gait pattern, no trunk rotation and flexed trunk Pt is able to heel raise but has decreased ability to toe raise Trunk AROM: LE MMT: R hip 4-/5 and L 3+/5 (weaker SLR on the R compared to the L) knee ext 4-/5 B B knee flex 4-/5 Bridges X 3 (tight and about 1/2 normal ROM) Tight with LTR B with slight pain when first started -SLUMP test B Very tight B hip flexor/Quad B Balance/Special Test Scores Lower Extremity Functional Score: 19 Goals Goal 1:: I HEP Goal Time Frame: 8-12 Weeks Goal 2:: Be able to roll over in bed with less difficulty per subjective Goal Time Frame: 8-12 Weeks Goal 3:: Decrease back pain with walking to 2/10 or less. Goal Time Frame: 8-12 Weeks Goal 4:: Walk with more upright trunk with gait to take the pressure off the back. Goal Time Frame: 8-12 Weeks Rehabilitation Potential Rehabilitation Potential: Good Anticipated Interventions Patient/Client Instruction: Educate patient on: Condition and Plan of Care For the Purpose of:: To decrease pain, To increase ROM, To improve nutrient delivery to tissue, To improve muscle performance and motor function, To improve ability to perform ADL's, To increase tolerance to activity/condition/position, To improve performance and independence with ADL's, To decrease level of supervision to perform tasks, To improve ability of physical actions for home/community/work/leisure, To improve gait and locomotor functions, To improve health of tissue, To decrease soft tissue restriction, To increase flexibility/ROM and To improve endurance Therapeutic Exercise to Include: Strength training, Endurance training, Postural training, Flexibilty training, Gait and locomotor training, Neuromotor development, Passive ROM, Active ROM and Dynamic Lumbar Stabilization For the Purpose of:: To decrease pain, To increase ROM, To improve nutrient delivery to tissue, To improve muscle performance and motor function, To increase tolerance to activity/condition/position, To improve performance and independence with ADL's, To decrease level of supervision to perform tasks, To improve ability of physical actions for home/community/work/leisure, To improve gait and locomotor functions, To improve health of tissue, To decrease soft tissue restriction, To increase flexibility/ROM, To improve endurance, To improve balance and To improve safety with gait Functional Training to Include: Gait training For the Purpose of:: To improve gait and locomotor functions and To improve safety with gait Manual Therapy Techniques to Include: Passive ROM and Soft tissue mobilization For the Purpose of:: To decrease pain, To increase ROM, To improve nutrient delivery to tissue and To improve muscle performance and motor function Text: Thank you for the opportunity to evaluate your patient. For Medicare and Medicare HMO plans, please review the plan of care and approve it. It will need to be FAXED BACK to us at [phone] for Medicare purposes. For Medicare only, by signing this I certify the plan of care. Please let me know if there are questions or concerns regarding this plan of care. Physician Signature: Date:
--- NOTE | 2024-04-07 11:11 | HP.PTDCSUM_ITS ---
Discharge Summary D/C summary: It has been my pleasure to treat KIRSTEN MARKS referred by Dr. Esteban Vital MD, with the diagnosis of PD/Chronic back pain, abnormality of gait for a total of 9 visit(s). Discharge Date: 04/07/24 Please see the following information for a summary of their discharge status. Subjective Subjective: Pt reports that her back is doing better. It is always worse in the morning but better as the day goes on. It still hurts in the morning but morning stretches do help some. Her knees hurt some. She reports that she wants to do the exercises at home for now and feels comfortable with that. Pain Back pain: Pain Intensity (Out of 10): 1 Overall Improvement % Improvement: 50 Objective Objective/Function: Issued all the above for HEP with print out. Pt feels confident with HEP Goals Goal 1:: I HEP Goal Progress: Goal Met Goal 2:: Be able to roll over in bed with less difficulty per subjective Goal Progress: Goal Met Goal 3:: Decrease back pain with walking to 2/10 or less. Goal Progress: Goal Met Goal 4:: Walk with more upright trunk with gait to take the pressure off the back. Goal Progress: Progressing Plan Plan: 2X/week for up to 12 weeks for Hip flexor stretches and LB stretches, sudhakar tral spine core stability and postural exercises, gait with upright posture with HEP HEP: HAYES, Perfecto, PT, B supine QS D/C Information Discharge Comments: DC PT to HEP d/c sentence: If there are questions or concerns regarding this patient's physical therapy, please feel free to call me at [phone]. Thank you for the referral of this patient. Sincerely, Aneta Leonardo, MPT Balance/Gait/Functional tests Balance/Special Test Scores Lower Extremity Functional Score: 30 Improvement % Improvement: 50
== END 2024-04-07 12:43 | disposition home or self-care (01) ==
LOC: PT 10:00
PROVIDERS: PCP Internal Medicine; Visit Provider Psychiatry & Neurology Sleep Medicine
DX: G20.A1 Parkinson's disease without dyskinesia, without mention of fluctuations (principal); R26.9 Unspecified abnormalities of gait and mobility; M54.50 Low back pain, unspecified; G89.29 Other chronic pain
CPT/HCPCS: 97110; 97161

== ENCOUNTER 2024-08-21 11:00 | Outpatient (RCR) | payer MEDICARE, SELFPAY ==
--- NOTE | 2024-07-18 09:24 | HP.PTEVAL_ITS ---
Patient's Visit Information Visit Information Visit Information: KIRSTEN MARKS is a 79 year old F referred to Physical Therapy by MADELAINE CARBAJAL with a diagnosis of L knee OA. Date of Evaluation: 07/18/24 Physical Therapist: Chino Mcclendon, PT, ATC Visit Plan Frequency: 2x /Week Duration: 4-6 Weeks Plan: L knee strengthening, core stab ex's, balance and proprio, stair negotiation, gait training, Nustep, and HEP Subjective Subjective: Pt has had chronic L knee pain. Pt notes the pain has progressively worsened over the past 2 months which has resulted in her L knee giving out on her. Pt reports she has not experienced any falls, but notes she has lost her balance and had to reach out and grab onto things just to avoid a fall. Pt repo rts she has had x-rays recently which revealed severe OA. Pt reports her balance has already been effected by having LBP and Parkinson's Disease. Pt reports she has good sensation in her feet as she can feel her feet his the ground. Pt reports she has stairs to her basement that she negotiates on occasion, which she has to hold on to her railing and negotiate the steps one at a time. Pt reports occasional sleep difficulty secondary to L knee pain. Pt notes her L knee pain is 4/10 while sitting here in the clinic, 10/10 pain at worst (when she is full weight bearing on L LE with gait) Pain L knee pain: Pain Intensity (Out of 10): 4 Pain Intensity Range: 10 Objective Objective: Neuro: B LE sensation is WNL to light touch throughout. ROM: R knee 0-110 degrees, L knee 0-105 degrees MMT: R knee flex= 35, ext= 42 #F; L knee flex= 24, ext= 10 #F TU seconds Gait: Pt is able to ambulate approximately 140 feet until needing to rest secondary to L knee pain. Balance/Special Test Scores Lower Extremity Functional Score: 7 Goals Goal 1:: Decrease L knee pain x 50% to aid with sleep Goal Time Frame: 4-6 Weeks Goal 2:: Increase L knee extension strength to 20 #F to aid with stair negotiation Goal Time Frame: 4-6 Weeks Goal 3:: Pt will perform the TUG test in under 15 seconds to aid with ambulatory efficiency Goal Time Frame: 4-6 Weeks Goal 4:: I with HEP Goal Time Frame: 4-6 Weeks Rehabilitation Potential Physical Therapy Diagnosis: Pt has L knee pain, weakness, and difficulty with ambulation secondary to L knee OA Rehabilitation Potential: Good Anticipated Interventions Patient/Client Instruction: Educate patient on: Condition and Plan of Care For the Purpose of:: To improve self management Therapeutic Exercise to Include: Strength training, Endurance training, Balance training, Gait and locomotor training and Dynamic Lumbar Stabilization For the Purpose of:: To decrease pain, To improve muscle performance and motor function and To increase tolerance to activity/condition/position Cryotherapy (ice pack, ice massage): Yes Thermo therapy (hot pack): Yes For the Purpose of:: To decrease pain Text: Thank you for the opportunity to evaluate your patient. For Medicare and Medicare HMO plans, please review the plan of care and approve it. It will need to be FAXED BACK to us at [phone] for Medicare purposes. For Medicare only, by signing this I certify the plan of care. Please let me know if there are questions or concerns regarding this plan of care. Physician Signature: Date:
--- NOTE | 2024-08-21 12:01 | HP.PTDCSUM ---
Discharge Summary D/C summary: It has been my pleasure to treat KIRSTEN MARKS referred by JOSE CARLOS IGNACIO NP-C, with the diagnosis of L knee OA for a total of 9 visit(s). Discharge Date: 08/21/24 Please see the following information for a summary of their discharge status. Subjective Subjective: Pt reports that her knee has been bothering her a lot more. She has been doing more. She is ready to get the surgery over with. Pt feels more prepared for her surgery but she feels that her knee is getting bad faster. Pain L knee pain: Pain Intensity (Out of 10): 7 Overall Improvement % Improvement: 60 Objective Objective/Function: TUG 11:56 seconds L knee flex 4/5 and knee ext 4/5 Goals Goal 1:: Decrease L knee pain x 50% to aid with sleep Goal Progress: Not Progressing Goal 2:: Increase L knee extension strength to 20 #F to aid with stair negotiation Goal Progress: Progressing Goal 3:: Pt will perform the TUG test in under 15 seconds to aid with ambulatory efficiency Goal Progress: Goal Met Goal 4:: I with HEP Goal Progress: Goal Met Plan Plan: DC PT D/C Information Discharge Comments: DC PT d/c sentence: If there are questions or concerns regarding this patient's physical therapy, please feel free to call me at [phone]. Thank you for the referral of this patient. Sincerely, Aneta Leonardo, MPT Balance/Gait/Functional tests Balance/Special Test Scores Lower Extremity Functional Score: 19 Improvement % Improvement: 60
== END 2024-08-21 19:00 | disposition home or self-care (01) ==
LOC: PT 11:00
PROVIDERS: PCP Internal Medicine; Referring Provider Nurse Practitioner; Visit Provider Nurse Practitioner
DX: M25.562 Pain in left knee (principal)
CPT/HCPCS: 97110; 97161; 97530

== ENCOUNTER 2025-01-10 15:00 | Outpatient (RCR) | payer MEDICARE, SELFPAY ==
--- NOTE | 2024-11-10 12:32 | HP.PTEVAL_ITS ---
Patient's Visit Information Visit Information Visit Information: KIRSTEN MARKS is a 79 year old F referred to Physical Therapy by Dr. Edgar Patel MD with a diagnosis of L TKR. Date of Evaluation: 11/10/24 Physical Therapist: CEDRICK Gale Visit Plan Frequency: 2x /Week Duration: 3 Months Plan: s/P l TLR 08-30-24 2X/ week for 12 weeks for L knee AROM, L knee and hip strength, functional transfers like sit to stand and curb steps, gait training, balance activities with HEP HEP: Seated and supine heel slides, QS and SLR Instructed pt that at this time she is to use her walker as she was extremely off balance walking back to the treatment rooms today Subjective Subjective: Pt had a L TKR Aug 30. She was in the hospital for 3 days and then [facility]. Now she is home with a son and grandson that lives with her. She is back to driving. She has one step from garage to get into the house and holds onto the door frame. She reports that she has not felt well enough to go to her PD class. She did have some home PT and has bars in her shower. She is walking with a cane into the dept but not great balance. She uses the rollator or holds onto furniture. She has no falls but she did slide out of bed last night but was not hurt. She was not given much as far as exercises at home. She is waking up every hour to go to the bathroom at night. This is newer for her. She is DM but her numbers have been ok. She has been on oxygen and is on it at home primarily now at night (she is usually above 90 but can drop into the 80's). She ices as needed. Pain L knee pain: Pain Intensity (Out of 10): 0 R knee pain: Pain Intensity (Out of 10): 2 Objective Objective: Gait: walks with a straight cane with very unsteady gait and does not have a good step length with the L LE. She is unsteady and not able to maintain her speed with walking and talking. Instructed pt to use her rollator or walker as she is not very steady at this point. WOMAC 78 TUG 18:57 girth patella 46.5 Girth 6 suprapatella 55.2 L knee flex AROM 108 L knee ext -6 from full extension R knee flex MMT 12.7 and L knee flex MMT 8.2 R knee ext MMT 22.5 and L knee ext MMT 11.9 Balance/Special Test Scores WOMAC Total Score: 76 WOMAC Percentatge: 20.8400 Goals Goal 1:: I HEP Goal Time Frame: 8-12 Weeks Goal 2:: Increase L knee AROM (at the time of the eval -6 degrees to 108 knee flex) Goal Time Frame: 8-12 Weeks Goal 3:: Be able to walk with a straight cane with nice recip stride length Goal Time Frame: 8-12 Weeks Goal 4:: Be able to sit to stand X 5 in a row with 1 UE with good weight shift FW Goal Time Frame: 8-12 Weeks Goal 5:: Be able to go up and down a curb step with cane and CGA Goal Time Frame: 8-12 Weeks Rehabilitation Potential Rehabilitation Potential: Good Anticipated Interventions Patient/Client Instruction: Educate patient on: Condition and Plan of Care For the Purpose of:: To decrease pain, To increase ROM, To improve nutrient delivery to tissue, To improve muscle performance and motor function, To improve ability to perform ADL's, To increase tolerance to activity/condition/position, To improve performance and independence with ADL's, To decrease level of supervision to perform tasks, To improve gait and locomotor functions, To improve health of tissue, To decrease soft tissue restriction, To increase flexibility/ROM, To improve endurance and To improve balance Therapeutic Exercise to Include: Strength training, Endurance training, Postural training, Flexibilty training, Gait and locomotor training, Neuromotor development, Passive ROM and Active ROM For the Purpose of:: To decrease pain, To increase ROM, To improve nutrient delivery to tissue, To improve muscle performance and motor function, To improve ability to perform ADL's, To increase tolerance to activity/condition/position, To improve performance and independence with ADL's, To decrease level of supervision to perform tasks, To improve ability of physical actions for home/community/work/leisure, To improve gait and locomotor functions, To improve health of tissue, To decrease soft tissue restriction, To increase flexibility/ROM, To improve endurance, To improve balance and To improve safety with gait Functional Training to Include: Gait training For the Purpose of:: To improve gait and locomotor functions and To improve safety with gait Manual Therapy Techniques to Include: Passive ROM and Soft tissue mobilization For the Purpose of:: To increase ROM and To improve nutrient delivery to tissue Cryotherapy (ice pack, ice massage): Yes For the Purpose of:: To decrease pain, To decrease swelling/inflammation and To improve nutrient delivery to tissue Text: Thank you for the opportunity to evaluate your patient. For Medicare and Medicare HMO plans, please review the plan of care and approve it. It will need to be FAXED BACK to us at [phone] for Medicare purposes. For Medicare only, by signing this I certify the plan of care. Please let me know if there are questions or concerns regarding this plan of ca re. Physician Signature: Date:
--- NOTE | 2024-12-11 11:57 | HP.PTREVAL ---
Re-Evaluation Intro: Dr. Edgar Patel MD, It has been my pleasure to treat KIRSTEN MARKS over the last 10 visits for L TKR. Please see the progress note below for an update on the physical therapy plan of care! Subjective Subjective: Pt wants to talk about more PT. She is getting a gel injection in her R knee which she is hoping will help her pain. Pt still has pain up and down from a chair and hoping the shot will help that. Pt feels her balance is really off still and trying to use the cane. She feels that it is really easy to lose her balance Objective Objective/Function: Gait: walks with decrease step length on the L. She likes to have FW COG with gait which throws her off with walking with a cane. Sit to stand: she can do it but she has increase pain and it is a struggle to do it. Pt does not like to pick feet up to turn to sit down in a chair. L knee AROM: -3 from full extension to 105 degrees flexion Plan Plan Plan: s/P l TLR 1-04-16 start curb steps, gait training working on upright posture and controlling the urge to have center of gravity forward, and overall balance. Turning to get self into the chair and turning 180 degrees exercises will help also 2X/ week for 12 weeks for L knee AROM, L knee and hip strength, functional transfers like sit to stand and curb steps, gait training, balance activities with HEP Balance/Gait/Functional tests Balance/Special Test Scores Lower Extremity Functional Score: 28 WOMAC Total Score: 76 WOMAC Percentage: 20.8400 Goals Goals Goal 1:: I HEP Goal Time Frame: 8-12 Weeks Goal Progress: Goal Met Goal 2:: Increase L knee AROM (at the time of the eval -6 degrees to 108 knee flex) Goal Time Frame: 8-12 Weeks Goal 3:: Be able to walk with a straight cane with nice recip stride length Goal Time Frame: 8-12 Weeks Goal Progress: Progressing Goal 4:: Be able to sit to stand X 5 in a row with 1 UE with good weight shift FW Goal Time Frame: 8-12 Weeks Goal Progress: Progressing Goal 5:: Be able to go up and down a curb step with cane and CGA Goal Time Frame: 8-12 Weeks Anticipated Interventions Anticipated Interventions Patient/Client Instruction: Educate patient on: Condition and Plan of Care For the Purpose of:: To decrease pain, To increase ROM, To improve nutrient delivery to tissue, To improve muscle performance and motor function, To improve ability to perform ADL's, To increase tolerance to activity/condition/position, To improve performance and independence with ADL's, To decrease level of supervision to perform tasks, To improve gait and locomotor functions, To improve health of tissue, To decrease soft tissue restriction, To increase flexibility/ROM, To improve endurance and To improve balance Therapeutic Exercise to Include: Strength training, Endurance training, Postural training, Flexibilty training, Gait and locomotor training, Neuromotor development, Passive ROM and Active ROM For the Purpose of:: To decrease pain, To increase ROM, To improve nutrient delivery to tissue, To improve muscle performance and motor function, To improve ability to perform ADL's, To increase tolerance to activity/condition/position, To improve performance and independence with ADL's, To decrease level of supervision to perform tasks, To improve ability of physical actions for home/community/work/leisure, To improve gait and locomotor functions, To improve health of tissue, To decrease soft tissue restriction, To increase flexibility/ROM, To improve endurance, To improve balance and To improve safety with gait Functional Training to Include: Gait training For the Purpose of:: To improve gait and locomotor functions and To improve safety with gait Manual Therapy Techniques to Include: Passive ROM and Soft tissue mobilization For the Purpose of:: To increase ROM and To improve nutrient delivery to tissue Cryotherapy (ice pack, ice massage): Yes For the Purpose of:: To decrease pain, To decrease swelling/inflammation and To improve nutrient delivery to tissue Re-Evaluation Ending Re-evaluation ending: Please do not hesitate to contact me at [phone] by phone or if you have questions or concerns regarding this new plan of care! Sincerely, CEDRICK Gale
--- NOTE | 2025-01-10 16:06 | HP.PTDCSUM ---
Discharge Summary D/C summary: It has been my pleasure to treat KIRSTEN MARKS referred by Dr. Edgar Patel MD, with the diagnosis of L TKR for a total of 19 visit(s). Discharge Date: 01/10/25 Please see the following information for a summary of their discharge status. Subjective Subjective: Pt reports that she did take Tylenol at noon. She thinks that her back pain and her balance have gotten worse in the last 3 weeks for some reason Pain L knee pain: Pain Intensity (Out of 10): 2 R knee pain: Pain Intensity (Out of 10): 2 back pain: Pain Intensity (Out of 10): 5 Overall Improvement % Improvement: 90 Objective Objective/Function: L knee AROM -6 to 108 Sit to stand X 5 in a row... first attempt is a little harder but uses arms and then loosens up. Gait: pt walked in with flexed trunk and some veering and very unsteady. suggested to pt that she use a rollator for a few days to give her back a rest or to use the rollator when she feels that she has back pain tug13.4 L knee flex 12 L knee ext 18.2 patella 45.1 and 6 55.4 Goals Goal 1:: I HEP Goal Progress: Goal Met Goal 2:: Increase L knee AROM (at the time of the eval -6 degrees to 108 knee flex) Goal Progress: Progressing Goal 3:: Be able to walk with a straight cane with nice recip stride length Goal Progress: Progressing Goal 4:: Be able to sit to stand X 5 in a row with 1 UE with good weight shift FW Goal Progress: Goal Met Goal 5:: Be able to go up and down a curb step with cane and CGA Plan Plan: DC PT to PD class and HEP D/C Information Discharge Comments: DC PT d/c sentence: If there are questions or concerns regarding this patient's physical therapy, please feel free to call me at [phone]. Thank you for the referral of this patient. Sincerely, Aneta Leonardo, MPT Balance/Gait/Functional tests Balance/Special Test Scores Lower Extremity Functional Score: 23 WOMAC Total Score: 52 WOMAC Percentage: 45.8400 Improvement % Improvement: 90
== END 2025-01-10 19:00 | disposition home or self-care (01) ==
LOC: PT 15:00
PROVIDERS: PCP Internal Medicine; Referring Provider Orthopaedic Surgery; Visit Provider Orthopaedic Surgery
DX: Z96.652 Presence of left artificial knee joint (principal)
CPT/HCPCS: 97110; 97162; 97530